=== PATIENT | female | born 1985 | race Caucasian/White ===

== ENCOUNTER 2018-02-19 19:41 | Emergency (ER) | payer MEDICAID, OTHER ==
[2018-02-19 19:41] VITALS: BMI 33.5
[2018-02-19 20:18] VITALS: RESP 20; O2SAT 99
[2018-02-19] MEDS ORDERED: Albuterol-Ipratrop 3 mg / 0.5 (3 ml) UD ONE (20:24)
[2018-02-19] MEDS ORDERED: Promethazine/Cod 6.25mg-10mg/5ml Syr UD PO STA (20:25)
[2018-02-19] MEDS ORDERED: Promethazine/Cod 6.25mg-10mg/5ml Syr UD ONE (20:34)
--- NOTE | 2018-02-19 21:28 | C.PDOC ---
Time Seen by Provider: 02/19/18 20:20 Chief Complaint (Nursing): Cough, Cold, Congestion Past Medical History Vital Signs: Last Vital Signs Temp 98.4 F 02/19/18 20:15 Pulse 104 H 02/19/18 20:15 Resp 20 02/19/18 20:15 BP 129/90 02/19/18 20:15 Pulse Ox 99 02/19/18 20:15 - Medical History PMH: Atrial Fibrillation, CHF, HTN, Pneumonia - [facility] Procedures CLOSURE SKIN & SUBCUTANEOUS NEC (06/08/14) TETANUS TOXOID ADMINIST (06/08/14) Family History: States: Unknown Family Hx - Social History Hx Tobacco Use: No Hx Alcohol Use: No Hx Substance Use: No - Immunization History Hx Tetanus Toxoid Vaccination: Yes Hx Influenza Vaccination: No Hx Pneumococcal Vaccination: No ED Course And Treatment O2 Sat by Pulse Oximetry: 99 Disposition - Disposition Disposition: HOME/ ROUTINE Disposition Time: 21:26 Condition: STABLE Additional Instructions: Follow up with primary medical doctor in 1-3 days without fail for further evaluation. Take medications as prescribed. Return to the emergency department at any time if symptoms persist or worsen. Prescriptions: Albuterol Sulfate [Ventolin Hfa] 1 puff IH Q6 PRN #1 ml PRN Reason: Shortness Of Breath Fluticasone Nasal [Flonase] 1 actuation NS DAILY #1 spr predniSONE [Prednisone] 40 mg PO DAILY #8 tab Instructions: Acute Bronchitis, Adult (DC)
[2018-02-19 21:29] VITALS: BP 113/74; PULSE 82; TEMP 97.6
--- NOTE | 2018-02-19 21:32 | C.PDOC ---
History Of Present Illness 32 year old female presents to the ED for evaluation of cough for 1 week ago. It has become more persistent today prompting visit. Describes it as a scratching in her throat. Patient states she saw her PMD last week and was prescribed Bromfed. She was evaluated again today and was prescribed Augmentin. She denies fever, leg swelling, chest pain, sore throat, history of smoking or asthma. Time Seen by Provider: 02/19/18 20:20 Chief Complaint (Nursing): Cough, Cold, Congestion History Per: Patient History/Exam Limitations: no limitations Onset/Duration Of Symptoms: Persistent, Other (1 week ) Associated Symptoms: Cough. denies: Fever, Chills, Sore Throat Additional History Per: Patient Past Medical History Reviewed: Historical Data, Nursing Documentation, Vital Signs Vital Signs: Last Vital Signs Temp 97.6 F 02/19/18 21:28 Pulse 82 02/19/18 21:28 Resp 20 02/19/18 21:28 BP 113/74 02/19/18 21:28 Pulse Ox 99 02/19/18 21:50 - Medical History PMH: Atrial Fibrillation, HTN, Pneumonia Surgical History: No Surg Hx - [facility] Procedures CLOSURE SKIN & SUBCUTANEOUS NEC (06/08/14) TETANUS TOXOID ADMINIST (06/08/14) Family History: States: Unknown Family Hx - Social History Hx Tobacco Use: No Hx Alcohol Use: No Hx Substance Use: No - Immunization History Hx Tetanus Toxoid Vaccination: Yes Hx Influenza Vaccination: No Hx Pneumococcal Vaccination: No Review Of Systems Constitutional: Negative for: Fever, Chills ENT: Negative for: Throat Pain Cardiovascular: Negative for: Chest Pain Respiratory: Positive for: Cough. Negative for: Sputum Physical Exam - Physical Exam Appears: Non-toxic, No Acute Distress Skin: Normal Color, Warm, Dry Head: Atraumatic, Normacephalic Eye(s): bilateral: Normal Inspection, EOMI Ear(s): Bilateral: Normal Nose: Normal Oral Mucosa: Moist Throat: Normal, No Erythema, No Exudate Neck: Normal ROM, Supple Chest: Symmetrical, No Deformity, No Tenderness Cardiovascular: Rhythm Regular Respiratory: Decreased Breath Sounds, No Rales, No Rhonchi, No Wheezing, Other ( persistent dry cough noted ) Gastrointestinal/Abdominal: Soft, No Tenderness Extremity: Normal ROM, Capillary Refill Neurological/Psych: Oriented x3, Normal Speech, Normal Cognition ED Course And Treatment O2 Sat by Pulse Oximetry: 99 (on RA) Pulse Ox Interpretation: Normal - Radiology CXR: Interpreted by Me, Viewed By Me CXR Interpretation: Yes: No Acute Disease Progress Note: CXR ordered and reviewed. Promethazine/Codeine PO and Prednisone PO administered. On re-evaluation, pt notes she feels better. Cough resolved. Lungs CTA. Remains afebrile. Instructed to follow up with PMD in 1-2 days or return to ER if symtpoms persist or worsen. Disposition - Disposition Disposition: HOME/ ROUTINE Disposition Time: 21:26 Condition: STABLE Additional Instructions: Follow up with primary medical doctor in 1-3 days without fail for further evaluation. Take medications as prescribed. Return to the emergency department at any time if symptoms persist or worsen. Prescriptions: Albuterol Sulfate [Ventolin Hfa] 1 puff IH Q6 PRN #1 ml PRN Reason: Shortness Of Breath Fluticasone Nasal [Flonase] 1 actuation NS DAILY #1 spr predniSONE [Prednisone] 40 mg PO DAILY #8 tab Instructions: Acute Bronchitis, Adult (DC) Forms: CITTIO (Sudanese) - Clinical Impression Clinical Impression: Bronchitis - PA / GRAIN OPERATOR / Resident Statement MD/DO has reviewed & agrees with the documentation as recorded. - Scribe Statement The provider has reviewed the documentation as recorded by the Scribe (Marissa Martinez) All medical record entries made by the Scribe were at my direction and personally dictated by me. I have reviewed the chart and agree that the record accurately reflects my personal performance of the history, physical exam, medical decision making, and the department course for this patient. I have also personally directed, reviewed, and agree with the discharge instructions and disposition.
--- NOTE | 2018-02-20 09:25 | RAD ---
HISTORY: sob COMPARISON: None TECHNIQUE: Chest PA and lateral FINDINGS: LUNGS: No focal consolidation is seen. PLEURA: No pleural effusion is identified. CARDIOVASCULAR: Heart size is within normal limits. OSSEOUS STRUCTURES: Visualized osseous structures are unremarkable. VISUALIZED UPPER ABDOMEN: Unremarkable. OTHER FINDINGS: None. IMPRESSION: No acute cardiopulmonary process seen.
== END 2018-02-19 21:31 | disposition home or self-care (01) ==
LOC: C.ER 19:41
DX: J40 Bronchitis, not specified as acute or chronic (principal)

== ENCOUNTER 2018-02-22 10:04 | Emergency (ER) | payer OTHER ==
[2018-02-22 10:05] VITALS: BMI 33.5
[2018-02-22 10:14] VITALS: RESP 18; TEMP 98.1
--- NOTE | 2018-02-22 10:19 | C.PDOC ---
History Of Present Illness 32 year old female presents to the ED c/o pain to the right ankle, right knee and left 1st toe status post after tripping and falling. Patient reports she was walking on the sidewalk when she tripped and fell. Patient reports she is unable to bear weight. Patient denies any other associated injuries, weakness, numbness. Patient reports her tetanus is UTD. - HPI Time Seen by Provider: 02/22/18 10:12 History Per: Patient History/Exam Limitations: no limitations Onset/Duration Of Symptoms: Hrs Injury Occurred (Timing): Just Before Arrival Location Of Injury: Right: Foot (left 1st toe, right ankle), Knee, Left: Foot Recent travel outside of the [place]: No Additional History Per: Patient - Fall Fall:Prior To Injury: Tripped Past Medical History Reviewed: Historical Data, Nursing Documentation, Vital Signs Vital Signs: Last Vital Signs Temp 98.1 F 02/22/18 10:13 Pulse 69 02/22/18 10:13 Resp 18 02/22/18 10:13 BP 104/72 02/22/18 10:13 Pulse Ox 97 02/22/18 12:31 - Medical History PMH: Atrial Fibrillation, CHF, HTN, Pneumonia Surgical History: No Surg Hx - [facility] Procedures CLOSURE SKIN & SUBCUTANEOUS NEC (06/08/14) TETANUS TOXOID ADMINIST (06/08/14) Family History: States: Unknown Family Hx - Social History Hx Tobacco Use: No Hx Alcohol Use: No Hx Substance Use: No - Immunization History Hx Tetanus Toxoid Vaccination: Yes Hx Influenza Vaccination: No Hx Pneumococcal Vaccination: No Review Of Systems Constitutional: Negative for: Fever, Chills Cardiovascular: Negative for: Chest Pain Respiratory: Negative for: Shortness of Breath Musculoskeletal: Positive for: Leg Pain, Foot Pain. Negative for: Back Pain Skin: Positive for: Other (Abrasion). Negative for: Rash Neurological: Negative for: Weakness, Numbness Physical Exam - Physical Exam Appears: Non-toxic, No Acute Distress Skin: Normal Color, Warm, Dry, Other (abrasion to the front of the right knee) Head: Atraumatic, Normacephalic Eye(s): bilateral: Normal Inspection Nose: No Discharge Oral Mucosa: Moist Neck: Normal ROM, Supple Chest: Symmetrical Cardiovascular: Rhythm Regular, No Murmur Respiratory: Normal Breath Sounds, No Rales, No Rhonchi, No Wheezing Extremity: Normal ROM, Tenderness (genral right lateral malleolus, front right knee and general 1st great toe), Capillary Refill (< 2 seconds), Swelling (mild front right knee, right laterl malleolus.), Other (left 1st great toe nail limited due to nail moldovan. no bruising) Pulses: Left Dorsalis Pedis: Normal, Right Dorsalis Pedis: Normal Neurological/Psych: Oriented x3, Normal Motor, Normal Sensation Gait: Steady ED Course And Treatment O2 Sat by Pulse Oximetry: 97 (ON RA) Pulse Ox Interpretation: Normal - Other Rad Right Knee Xray X-Ray: Read By Radiologist Interpretation: IMPRESSION: Normal radiographs of the right knee. Left foot Xray X-Ray: Read By Radiologist Interpretation: IMPRESSION: Nondisplaced intra-articular fracture medial base of 1st distal phalanx. Right ankle Xray X-Ray: Read By Radiologist Interpretation: IMPRESSION: Normal right ankle radiographs. Progress - Re-Evaluation Re-evaluation Note: 02/22/18 11:28 D/W POD RESIDENT WILL EVAL IN ER 02/22/18 12:38 S/P EVAL PODIATRY. S/P SURGICAL POST OP SHOE AND CHEEK DRESSINGS APPLIED BY PODIATRY. FU CLINIC - Data Reviewed Data Reviewed: Diagnostic imaging - Continuity of Care Discussed pt. case with teamcenter consultant/specialty: Podiatry Medical Decision Making Medical Decision Making: Plan: * Toradol 60 mg IM * Right knee X-Ray * Right ankle X-Ray * Left foot X-Ray Disposition Counseled Patient/Family Regarding: Studies Performed, Diagnosis, Need For Followup, Rx Given - Disposition Referrals: [facility] [Outside] [facility] [Outside] Disposition: HOME/ ROUTINE Disposition Time: 12:39 Condition: IMPROVED Prescriptions: Ibuprofen [Motrin] 600 mg PO Q6 #30 tab Instructions: Ankle Sprain (DC), Toe Fracture, Skin Abrasions (DC) Forms: Work Excuse - Clinical Impression Clinical Impression: Ankle sprain, Toe fracture, Knee abrasion - Scribe Statement The provider has reviewed the documentation as recorded by the Scribe Neil Whalen All medical record entries made by the Scribe were at my direction and personally dictated by me. I have reviewed the chart and agree that the record accurately reflects my personal performance of the history, physical exam, medical decision making, and the department course for this patient. I have also personally directed, reviewed, and agree with the discharge instructions and disposition.
--- NOTE | 2018-02-22 11:18 | RAD ---
PROCEDURE: Right Ankle Radiographs. HISTORY: TRAUMA COMPARISON: None FINDINGS: BONES: Normal. No fracture. JOINTS: Normal. No osteoarthritis. Ankle mortise maintained. Talar dome intact SOFT TISSUES: Normal. OTHER FINDINGS: None. IMPRESSION: Normal right ankle radiographs.
--- NOTE | 2018-02-22 11:19 | RAD ---
PROCEDURE: Right Knee Radiographs. HISTORY: TRAUMA COMPARISON: None. FINDINGS: BONES: Normal. No fracture. JOINTS: Normal. No osteoarthritis. JOINT EFFUSION: None. OTHER FINDINGS: None. IMPRESSION: Normal radiographs of the right knee.
--- NOTE | 2018-02-22 11:21 | RAD ---
PROCEDURE: Radiographs of the left great toe. TECHNIQUE:: AP radiograph of the left foot, with oblique and lateral view of the left great toe. COMPARISON: None. FINDINGS: BONES: Nondisplaced intra-articular fracture medial base of 1st distal phalanx. No other fracture identified. JOINTS: Normal. SOFT TISSUES: Normal. OTHER FINDINGS: None. IMPRESSION: Nondisplaced intra-articular fracture medial base of 1st distal phalanx.
--- NOTE | 2018-02-22 12:34 | CP.PCM.CON ---
History of Present Illness - History of Present Illness History of Present Illness: Podiatry Consult note for Dr. Oquendo 32 year old female who denies any PMHx was seen at bedside regarding right ankle and left great toe pain. Patient states that today she tripped in a hole and fell. Patient states that it is painful to put weight on her right foot. She currently denies any n/v/f/c/sob/cp or loss of consciousness. Past Patient History - Infectious Disease Hx of Infectious Diseases: None - Past Social History Smoking Status: Never Smoked - CARDIAC Hx Atrial Fibrillation: Yes Hx Congestive Heart Failure: Yes Hx Hypertension: Yes - PULMONARY Hx Pneumonia: Yes - MUSCULOSKELETAL/RHEUMATOLOGICAL Other/Comment: hx of falls. - GASTROINTESTINAL Other/Comment: hx of dehydration - PSYCHIATRIC Hx Substance Use: No - SURGICAL HISTORY Hx Surgeries: No - ANESTHESIA Hx Anesthesia: No Meds Home Medications: Home Medication List Medication Instructions Recorded Confirmed Type Ibuprofen [Motrin] 600 mg PO Q6 #30 tab 02/22/18 Rx Allergies/Adverse Reactions: Allergies Allergy/AdvReac Type Severity Reaction Status Date / Time No Known Allergies Allergy Verified 02/19/18 20:18 Physical Exam - Constitutional Appears: Well, Non-toxic, No Acute Distress - Extremities Exam Additional comments: Lower extremity focused exam: Vasc: DP and PT pulses palpable 2/4 b/l. CFT < 3 seconds to all digits b/l. Skin temperature warm to warm from proximal to distal b/l. Neuro: Gross sensation intact b/l. Derm: No open lesions, no ecchymosis noted. Skin is well hydrated. Nails 1-5 b/ l WNL for thickness and lenght. Webspaces 1-4 b/l are CDI. Ortho:Non-pitting edema noted to left ankle. Pain on palpation noted to the PTFL of the right ankle, no pain to the ATFL, or CFT or lateral or medial malleolus. Tenderness on palpation to the left hallux. Pain with everision, no pain with inv, DF or PF. no pain on compression of calf - Neurological Exam Neurological exam: Alert, Oriented x3 - Psychiatric Exam Psychiatric exam: Normal Affect, Normal Mood Results - Vital Signs Recent Vital Signs: Last Vital Signs Temp 98.1 F 02/22/18 10:13 Pulse 69 02/22/18 10:13 Resp 18 02/22/18 10:13 BP 104/72 02/22/18 10:13 Pulse Ox 97 02/22/18 12:31 Assessment & Plan - Assessment and Plan (Free Text) Assessment: 32 year old female with left hallux fracture and right ankle sprain Plan: patient examined and evaluated discussed in detail with attending, Dr. Oquendo chart and vitals reviewed radiographs reviewed, left foot IMPRESSION:Nondisplaced intra-articular fracture medial base of 1st distal phalanx. right ankle IMPRESSIONS: normal ankle radiograph right and left LE dressed with lópez compressive dressing and a surgical shoe patient to keep dressing c/d/i RICE therapy patient to stay off her feet as much as possible and walk with the assistance of crutches patient to follow up in podiatry clinic
[2018-02-22 13:08] VITALS: BP 107/63; PULSE 72; O2SAT 98
== END 2018-02-22 13:08 | disposition home or self-care (01) ==
LOC: C.ER 10:04
DX: S92.425A Nondisplaced fracture of distal phalanx of left great toe, initial encounter for closed fracture (principal); S93.401A Sprain of unspecified ligament of right ankle, initial encounter; S80.211A Abrasion, right knee, initial encounter; W01.0XXA Fall on same level from slipping, tripping and stumbling without subsequent striking against object, initial encounter; Y92.480 Sidewalk as the place of occurrence of the external cause
CPT/HCPCS: 73562; 73610; 73660; 96372; 99284; J1885

== ENCOUNTER 2018-03-23 03:03 | Emergency (ER) | payer OTHER ==
[2018-03-23 03:03] VITALS: BMI 33.5
[2018-03-23 03:16] VITALS: RESP 20; O2SAT 99
--- NOTE | 2018-03-23 03:58 | C.PDOC ---
History Of Present Illness 32 y/o female presents to the ED complaining of continued pain to the right ankle, right knee, and left great toe. She states symptoms began in early February after a trip and fall due to pothole. She was evaluated at the time, and diagnosed with a sprained ankle and toe fracture. Patient followed up with podiatry yesterday, who gave her an injection for pain into the ankle. She notes the pain persists. Patient has been taking Tramadol for pain at home. Denies change in sensation, leg swelling, calf pain, fever, or erythema. No new trauma. Time Seen by Provider: 03/23/18 03:25 Chief Complaint (Nursing): Lower Extremity Problem/Injury History Per: Patient History/Exam Limitations: no limitations Onset/Duration Of Symptoms: Days Current Symptoms Are (Timing): Still Present Past Medical History Reviewed: Historical Data, Nursing Documentation, Vital Signs Vital Signs: Last Vital Signs Temp 98.1 F 03/23/18 04:18 Pulse 69 03/23/18 04:18 Resp 20 03/23/18 04:18 BP 112/77 03/23/18 04:18 Pulse Ox 99 03/23/18 04:18 - Medical History PMH: Atrial Fibrillation, CHF, HTN, Pneumonia Surgical History: No Surg Hx - [facility] Procedures CLOSURE SKIN & SUBCUTANEOUS NEC (06/08/14) TETANUS TOXOID ADMINIST (06/08/14) Family History: States: Unknown Family Hx - Social History Hx Tobacco Use: No Hx Alcohol Use: No Hx Substance Use: No - Immunization History Hx Tetanus Toxoid Vaccination: Yes Hx Influenza Vaccination: Yes Hx Pneumococcal Vaccination: No Review Of Systems Except As Marked, All Systems Reviewed And Found Negative. Musculoskeletal: Positive for: Leg Pain (left knee), Foot Pain (right ankle), Other (left great toe pain) Neurological: Negative for: Weakness, Numbness Physical Exam - Physical Exam Appears: Well, Non-toxic, No Acute Distress Skin: Normal Color, Warm, Dry Head: Atraumatic, Normacephalic Eye(s): bilateral: Normal Inspection, EOMI Nose: Normal Oral Mucosa: Moist Chest: Symmetrical Respiratory: No Accessory Muscle Use, Other (speaking in full sentences) Extremity: Normal ROM, Tenderness (diffuse tenderness over the right ankle with no erythema or increased warmth; healing superficial abrasion to right knee with anterior tenderness), No Pedal Edema, No Calf Tenderness, Capillary Refill (less than 2 sec at all digits), No Deformity, Other (toes are taped) Pulses: Left Dorsalis Pedis: Normal, Right Dorsalis Pedis: Normal Neurological/Psych: Oriented x3, Normal Speech, Other (No focal deficits) Gait: Steady ED Course And Treatment O2 Sat by Pulse Oximetry: 99 (RA) Pulse Ox Interpretation: Normal Progress Note: Patient treated with 30 mg IM Toradol for pain control. On reassessment, patient is resting comfortably, pain free, and is in no acute distress. Patient was instructed to follow up with podiatry clinic for further evaluation. Reevaluation Time: 03:55 Reassessment Condition: Improved Disposition Counseled Patient/Family Regarding: Diagnosis, Need For Followup, Rx Given - Disposition Referrals: Lashon Be MD [Primary Care Provider] - Disposition: HOME/ ROUTINE Disposition Time: 03:56 Condition: STABLE Additional Instructions: Rest, ice and elevate the area. Follow up with your entry level account manager in 1-2 days. Prescriptions: Ketorolac Tromethamine [Toradol] 10 mg PO Q6 PRN #20 tab PRN Reason: Pain, Moderate (4-7) Instructions: Ankle Sprain (DC) Forms: VOYAA (Turkish) - POA Present On Arrival: None - Clinical Impression Clinical Impression: Toe fracture, Ankle sprain - PA / BELT BACK OPERATOR / Resident Statement MD/DO has reviewed & agrees with the documentation as recorded. - Scribe Statement The provider has reviewed the documentation as recorded by the Scribe (Bernie Celeste) All medical record entries made by the Scribe were at my direction and personally dictated by me. I have reviewed the chart and agree that the record accurately reflects my personal performance of the history, physical exam, medical decision making, and the department course for this patient. I have also personally directed, reviewed, and agree with the discharge instructions and disposition.
[2018-03-23 04:19] VITALS: BP 112/77; PULSE 69; TEMP 98.1
== END 2018-03-23 04:18 | disposition home or self-care (01) ==
LOC: C.ER 03:03 → SUPCPDRO 03:03 → C.ER 04:18
DX: S92.402G Displaced unspecified fracture of left great toe, subsequent encounter for fracture with delayed healing (principal); S93.401D Sprain of unspecified ligament of right ankle, subsequent encounter; W01.0XXD Fall on same level from slipping, tripping and stumbling without subsequent striking against object, subsequent encounter
CPT/HCPCS: 96372; 99284; J1885